=== PATIENT | female | born 1960 | race Caucasian/White ===

== ENCOUNTER 2020-04-20 18:25 | Emergency (ER) | payer SELFPAY ==
[~2020-04-20] VITALS: Ht 160 cm; Wt 81.7 kg
[~2020-04-20 18:25] MED LIST: ATOR20 PO; BUSP5 PO; CLON1 PO; Cymbalta20 MG PT; Zantac150 MG PO
== END 2020-04-20 19:26 | disposition home or self-care (01) ==
LOC: ER 18:25
DX: S80.11XA Contusion of right lower leg, initial encounter (principal); J44.9 Chronic obstructive pulmonary disease, unspecified; F41.9 Anxiety disorder, unspecified; F32.9 Major depressive disorder, single episode, unspecified; N18.9 Chronic kidney disease, unspecified; F17.210 Nicotine dependence, cigarettes, uncomplicated; V49.9XXA Car occupant (driver) (passenger) injured in unspecified traffic accident, initial encounter
CPT/HCPCS: 99284

== ENCOUNTER 2020-08-15 10:52 | Emergency (ER) | payer OTHER ==
[~2020-08-15] VITALS: Ht 160 cm; Wt 89.8 kg
== END 2020-08-15 13:55 | disposition home or self-care (01) ==
LOC: ER 10:52
DX: Z53.21 Procedure and treatment not carried out due to patient leaving prior to being seen by health care provider (principal)

== ENCOUNTER 2020-10-08 16:10 | Emergency (ER) | payer OTHER ==
[~2020-10-08] VITALS: Ht 160 cm; Wt 90.7 kg
== END 2020-10-08 17:23 | disposition home or self-care (01) ==
LOC: ER 16:10
DX: M17.12 Unilateral primary osteoarthritis, left knee (principal); J44.9 Chronic obstructive pulmonary disease, unspecified; F41.9 Anxiety disorder, unspecified; F32.9 Major depressive disorder, single episode, unspecified; N18.9 Chronic kidney disease, unspecified; F17.210 Nicotine dependence, cigarettes, uncomplicated; Z79.899 Other long term (current) drug therapy
CPT/HCPCS: 99284

== ENCOUNTER 2021-03-30 09:23 | Emergency (ER) | payer OTHER ==
[~2021-03-30] VITALS: Ht 160 cm; Wt 90.7 kg
== END 2021-03-30 10:32 | disposition home or self-care (01) ==
LOC: ER 09:23
DX: S62.394A Other fracture of fourth metacarpal bone, right hand, initial encounter for closed fracture (principal); J44.9 Chronic obstructive pulmonary disease, unspecified; N18.9 Chronic kidney disease, unspecified; F17.210 Nicotine dependence, cigarettes, uncomplicated; Z79.899 Other long term (current) drug therapy; W01.10XA Fall on same level from slipping, tripping and stumbling with subsequent striking against unspecified object, initial encounter
CPT/HCPCS: 29125; 73130; 99283-25

== ENCOUNTER 2021-05-18 14:57 | Inpatient (IN) | payer OTHER ==
[~2021-05-18] VITALS: Ht 160 cm; Wt 89.9 kg
[2021-05-18 15:10] LABS: Calcium, Ionized (POC) 1.12 mmol/L (1.10-1.46); Chloride (POC) 108 mmol/L (98-108); Creatinine (POC) 1.1 mg/dL (0.6-1.0); Glucose (ISTAT POC) 101 mg/dL (70-99); Hemoglobin (POC) 14.3 g/dL (12.0-16.0); Potassium (POC) 4.2 mmol/L (3.5-5.5); Sodium (POC) 143 mmol/L (135-148); Total CO2 (POC) 26 mmol/L (21-32)
[2021-05-18 15:15] LABS: BASOPHILS ABSOLUTE AUTO 0.06 K/mm3 (0.00-0.23); BASOPHILS PERCENT AUTO 0 % (0-2); EOSINOPHILS PERCENT AUTO 3 % (0-6); Hematocrit 44.2 % (33.0-51.0); IMMATURE GRAN ABSOLUTE AUTO 0.06 K/mm3 (0.00-0.10); IMMATURE GRAN PERCENT AUTO 0 % (0-1); LYMPHOCYTES ABSOLUTE AUTO 2.58 K/mm3 (0.84-5.20); LYMPHOCYTES PERCENT AUTO 17 % (21-46); MONOCYTES ABSOLUTE AUTO 1.43 K/mm3 (0.16-1.47); MONOCYTES PERCENT AUTO 10 % (4-13); Mean Corpuscular HGB 28.2 pg (26.0-34.0); Mean Corpuscular HGB Conc 31.7 g/dL (31.5-36.5); Mean Corpuscular Volume 89 fL (80-100); Mean Platelet Volume 9.6 fL (9.1-12.4); NEUTROPHILS ABSOLUTE AUTO 10.38 K/mm3 (1.96-9.15); NEUTROPHILS PERCENT AUTO 70 % (41-73); Platelet Count 305 K/mm3 (150-400); RDW Coefficient Variation 13.6 % (11.7-14.2); RDW Standard Deviation 44.2 fL (35.1-46.3); Red Blood Cell Count 4.96 M/mm3 (3.80-5.20); White Blood Cell Count 14.91 K/mm3 (4.00-11.30)
[2021-05-18 15:34] LABS: International Normalized Ratio 0.86; Prothrombin Time Results 9.4 Sec (9.7-11.5)
[2021-05-18 15:44] LABS: Alanine Aminotransfer (ALT/SGP 25 U/L (12-78); Albumin, Blood 3.2 g/dL (3.4-5.0); Albumin/Globulin Ratio 0.9 (0.8-1.8); Alk Phos 82 U/L (50-136); Anion Gap 4 mmol/L (6-16); Aspartate Aminotrans (AST/SGOT 19 U/L (12-37); Bilirubin, Total 0.3 mg/dL (0.1-1.0); Blood Urea Nitrogen 16 mg/dL (8-24); Bun/Creatinine Ratio 14.8 (12.0-20.0); CO2, Blood 28 mmol/L (21-32); Calcium, Blood 8.9 mg/dL (8.5-10.1); Chloride, Blood 111 mmol/L (98-108); Creatinine, Blood 1.08 mg/dL (0.40-1.00); Ethanol (Alcohol), Blood, Med <3 mg/dL; Globulin, Blood 3.6 g/dL (2.2-4.0); Glomerular Filtration Rate 52 (60-); Glucose, Blood 98 mg/dL (70-99); Potassium, Blood 4.3 mmol/L (3.5-5.5); Sodium, Blood 143 mmol/L (136-145); Total Protein, Blood 6.8 g/dL (6.4-8.2); Troponin I 0.348 ng/mL (0.000-0.040)
[2021-05-18 16:58] LABS: U Amphetamine Screen DETECTED; U Barbituate Screen Not Detected; U Benzodiazapine Screen Not Detected; U Buprenorphine Screen Not Detected; U Cannabinoids Screen DETECTED; U Cocaine Screen Not Detected; U Methadone Screen Not Detected; U Methamphetamine Screen DETECTED; U Opiates Screen DETECTED; U Oxycodone Screen Not Detected; U Phencyclidine Screen Not Detected; U Propoxyphene Screen Not Detected
--- NOTE | 2021-05-18 16:58 | NUR ---
INITALLY PT OG PLACEMENT WITH DR MARINO PERMISSION REVEALED A COMBINATION OF GASTRIC CONTENTS AND BLOOD OF ABOUT ML PT IS NOTED TO HAVE BLEEDING NASALY AND ORALLY, WILL MONITOR.
[2021-05-18 18:02] LABS: PCO2 Arterial 57.2 mmHg (35-45); PO2 Arterial 66.1 mmHg (80-100); pH Blood Arterial 7.26 (7.35-7.45)
--- NOTE | 2021-05-18 19:34 | NUR ---
CARE ASSUMED- PICC LINE BEING PLACED MIR. SEDATION INFUSING-PROPOFOL AT 50 MCG/KG/MIN. IVF-NS @ 100 ML/HR. EDDY IN PLACE DRAINING CLEAR YELLOW OUTPUT. BS: END EXPIRATORY WHEEZES BILAT UPPER LOBES ON VENT A/C TV 400, RATE 14, 80% PEEP 12. VITALS NOTED IN FLOWSHEET. #7 ET-TUBE, DIFFICULTY PASSING SXN CATH-BUT ABLE TO-SXN SMALL AMTS BLOODY SECREATIONS WITH A POSITIVE COUGH. TR BAND ON RT WORST, GOOD COLOR, CAP REFILL AND SATS RT HAND. DECREASED PRESSURE IN BAND BY 2 ML. CONTINUE ASSESSMENTS AND CARE.
--- NOTE | 2021-05-18 19:44 | NUR ---
PT BP LABILE WITH PROPOFOL GTT. NS 100ML MAINTANCE AND 250 BOLUS STARTED AFTER BP DROPPED, SEE VS. PT IS RESTRAINED. UPPER ARM P.G. CHANGED TO PICC LINE AND LEVOPHED GTT PLACED ON STANDBY. TR BAND REPORTED TO HAVE 15ML PLACED IN SENIOR BACK END JAVA DEVELOPER. SITE W/O OOZING OR HEMATOMA AND GOOD FINGER CIRCULATION NOTED. PT HAS NASAL AND ORAL BLOOD SX AND OG WAS PLACED WTIH 500ML OF GASTRIC AND BLOOD RETURN. GAUZE PLACED IN R NARE TO ASSIST IN CONTROLLING BLEEDING UNTIL ANTICOAG THERAPY CORRECTED. PT PROPOFOL HAS BEEN TITRATED AND SETTLED AT 35MCG WHERE LOW BP WERE NOTED, NS BOLUS GIVEN, AND ORDER FOR LEVOPHED GTT AND PICC LINE OBTAINED.
--- NOTE | 2021-05-18 23:14 | NUR ---
CALLED DR. BURCIAGA TO GIVE AN UPDATE ON PT'S BLEEDING FROM THE NOSE AND THAT IT HAS SLOWED DOWN. DOES NOT WANT AGGRASTAT GIVEN. HE DOES WANT THE BRILINTA GIVEN TONIGHT AND THE ASA TO BE GIVEN IN THE AM.
--- NOTE | 2021-05-18 23:40 | NUR ---
ASSESS FAMILY CALLED AND UPDATED. PT REMAINS SEDATED ON PROPOFOL, VENT NOW ON A/C 18(RATE CHANGE BY RT PER MD), 60% (FIO2 DECREASED BY RT) TV400, PEEP 12. BS: CLEAR BILAT, EQUAL. SXN: SMALL AMTS BLOODY SECREATIONS. ORAL CARE DONE WITH SCANT BLOODY SECREATIONS.CONTINUE ASSESSMENTS AND CARE.
--- NOTE | 2021-05-19 02:28 | NUR ---
TR BAND-REMOVED. PRESSURE WAS RELEASED 2 ML'S AT A TIME OVER 3 HOURS Q 15 MIN INTERVALS. NO S&S OF BLEEDING. AFTER BAND REMOVED, SITE COVERED WITH WINDOW DRESSING, GOOD STRONG RADIAL PULES & CAP REFIL NOTED. CONTINUE ASSESSMENT AND CARE.
[2021-05-19 05:40] LABS: Hematocrit 40.3 % (33.0-51.0); Hemoglobin 12.9 g/dL (11.5-16.0); Mean Corpuscular HGB 28.7 pg (26.0-34.0); Mean Corpuscular Volume 90 fL (80-100); Mean Platelet Volume 9.8 fL (9.1-12.4); Platelet Count 303 K/mm3 (150-400); RDW Coefficient Variation 13.7 % (11.7-14.2); RDW Standard Deviation 45.2 fL (35.1-46.3); Red Blood Cell Count 4.49 M/mm3 (3.80-5.20); White Blood Cell Count 35.89 K/mm3 (4.00-11.30)
[2021-05-19 05:58] LABS: BAND PERCENT MAN 28 % (0-8); BASOPHILS PERCENT MAN 0 % (0-2); EOSINOPHILS PERCENT MAN 0 % (0-6); LYMPHOCYTES ABSOLUTE MAN 0.71 K/mm3 (0.84-5.20); LYMPHOCYTES PERCENT MAN 2 % (21-46); METAMYELOCYTE ABSOLUTE MAN 0.35 K/mm3 (0.00-0.00); METAMYELOCYTE PERCENT MAN 1 % (0-0); MONOCYTES ABSOLUTE MAN 1.43 K/mm3 (0.16-1.47); MONOCYTES PERCENT MAN 4 % (4-13); NEUTROPHILS ABSOLUTE MAN 33.37 K/mm3 (1.96-9.15); SEG NEUTROPHILS PERCENT MAN 65 % (41-73); TOTAL CELLS COUNTED 100
[2021-05-19 05:59] LABS: Bun/Creatinine Ratio 14.4 (12.0-20.0); Calcium, Blood 8.4 mg/dL (8.5-10.1); Creatinine, Blood 1.18 mg/dL (0.40-1.00); Potassium, Blood 4.4 mmol/L (3.5-5.5)
--- NOTE | 2021-05-19 06:00 | NUR ---
ASSESS SEDATION SLOWLY DECREASED OVERNIGHT TO 30 MCG/KG/MIN. PT WOKE, COMBATIVE, PULLING AT RESTRAINTS, THRASHING HEAD, MOUTHING WORDS, AGGITATED. INCREASED PROPOFOL TO 50 MCG/KG/MIN TO SEDATE PT FOR SAFETY AND COMFORT. LEVO STARTED @ 2 MCG/MIN FOR BP SUPPORT. CONTINUE ASSESSMENT AND CARE.
--- NOTE | 2021-05-19 06:42 | NUR ---
END OF SHIFT PT ON VENT- AC/VC RATE 18, TV 400, 60%, 12 PEEP. BS: DECREASED, CLEAR, EQUAL. SXN: SMALL BLOODY SECREATIONS, STRONG COUGH, SXN ORAL AIRWAY ALSO BLOODY SECREATIONS, POSITIVE GAG. REMAINS SEDATED ON PROPOFOL CURRENTLY @ 50 MCG/KG/MIN. WHEN SEDATION DECREASED OVERNIGHT-PT WOKE, THRASHED AROUND AND REQUIRED SEDATION TO BE INCREASED FOR SAFETY AND COMFORT. STARTED LEVO FOR LOW BP'S CURRENTLY @ 3 MCG/MIN. EDDY CATH REMAINS IN PLACE. CONTINUE ASSESSMENT AND CARE TILL REPORT OFF TO DAYSHIFT.
[2021-05-19 07:40] LABS: Source, Urine Catheter
--- NOTE | 2021-05-19 08:00 | NUR ---
PT REMAINS INTUBATED, SEDATED, AND RESTRAINED. PT GRIMACING, AND PULLING ON RESTRAINTS WITH ORAL CARE. NOT FOLLOWING COMMANDS. PT VERY AGITATED WITH POSITION CHANGE. REACHES FOR ETT WHEN NOT RESTRAINED, KICKING LEGS, AND THRASHING IN THE BED. PROPOFOL TITRATED UP TO 55 MCG/KG/MIN AND PT MED WITH FENTANYL 50 MCG IVP X 1 FOR PAIN/SEDATION ADJUNCT. ECG SHOWS SR. MAP TRENDING <60-LEVOPHED TITRATED UP TO 4 MCG/MIN. LUNGS DIMINISHED IN THE BASES. ETT TO VENT AC 18, TV 400, PEEP 12, FIO2 40%-SUCTION PRODUCTIVE OF MODERATE AMOUNT OF OLD, BLOODY SECRETIONS. MAINTAINS SATS>90% ON RA. OGT CLAMPED AFTER ROUTINE AM MEDS GIVEN. EDDY WITH SMALL AMOUNT OF CLOUDY URINE TO BSD. U/A SENT.
[2021-05-19 08:01] LABS: Appearance, Urine Turbid (Clear); Bilirubin, Urine Neg (Neg); Blood, Urine 1+ (Neg); Color, Urine Yellow (P-Yellow); Glucose Qualitative, Urine Neg (Neg); Ketones, Urine Neg (Neg); Leukocyte Esterase, Urine 1+ (Neg); Nitrite, Urine Neg (Neg); Protein, Urine 2+ (Neg); Specific Gravity, Urine 1.015 (1.003-1.022); Urobilinogen, Urine NORM (Normal)
[2021-05-19 08:18] LABS: Amorphous Heavy (0-Heavy)
[2021-05-19 08:19] LABS: Bacteria Not Seen /hpf; Red Blood Cells, Urine 0-2 /hpf (0-2); Squamous Epithelial Cells Not Seen /hpf (Few); White Blood Cells, Urine 0-2 /hpf (0-5)
--- NOTE | 2021-05-19 09:30 | NUR ---
DR. NOBLE IN TO SEE PT. PEEP DECREASED TO 8-SATS STILL >90%
--- NOTE | 2021-05-19 10:15 | NUR ---
PEEP DECREASED TO [address] FINN>90%
--- NOTE | 2021-05-19 11:30 | NUR ---
DR. NOBLE AT BEDSIDE. PT OPENED EYES TO HIS VOICE AND NODDED APPORPRIATELY, BUT THEN BECAME EXTREMELY AGITATED. PRECEDEX DRIP TITRATED UP TO 1.4 MCG/KG/MIN AND PROPOFOL @ 30 MCG/KG/MIN-MED WITH FENTANYL 50 MCG IVP X 1 -SEE EMAR. PT PLACED ON SPONTANEOUS MODE OF VENTILATION WITH PS 12-GOOD TV AND SATS>90% ON FIO2 30%. DR. NOBLE CHECKED FOR CUFF LEAK, BUT NO CUFF LEAK AT THIS TIME. WILL LEAVE ON SPONTANEOUS TOLERATED, BUT NO PLAN TO EXTUBATE TODAY.
--- NOTE | 2021-05-19 14:35 | NUR ---
PT BECAME VERY AGITATED WITH REPOSITIONING. SHE TRIED TO SIT UP IN BED AND BEGAN KICKIN HER LEGS AND PULLING ON RESTRAINTS. PT DID FOLLOW COMMANDS TO OPEN HER EYES, BUT NOT FOLLOWING ANY OTHER COMMANDS. SHE DID NOD "YES" WHEN ASKED IF IN PAIN-MED WITH FENTANYL 100 MCG IVP X 1. PT STILL ON PS 12-SATS>90% TV'S 400'S.
--- NOTE | 2021-05-19 15:30 | NUR ---
NO ACUTE CHANGES-PT DENIES HEADACHE OR DIZZINESS. PT STILL DISORIENTED, BUT VERY PLEASANT AND COOPERATIVE WITH CARE. REPORT PHONED TO [facility] SYLVESTER IN PREP TO TRANSFER PT TO PCU 5.
--- NOTE | 2021-05-19 16:00 | NUR ---
PT CONTINUES TO GET AGITATED WITH ORAL CARE AND POSITION CHANGES WITH PROPOFOL @ 30 MCG/KG/MIN AND PRECEDEX @ 1.4 MCG/KG/MIN-MEDICATING WITH FENTANYL 50-100MCG IVP-PRN PAIN/SEDATION ADJUNCT-SEE EMAR. TEMP 100.9 [address] TO [address] MAP TRENDING 60-65 WITH LEVOPHED @ 5 MCG/MIN. LUNGS REMAIN DIMINISHED IN THE BASES. VENT CONTINUES ON PS 12, FIO2 30%-TV 400'S, RR 16-24, SATS>90% ON FIO2 30%. OGTF INITIATED PER DIETARY ORDERS. EDDY WITH DECREASED URINE OUTPUT THIS SHIFT-CONTINUES DARK, YELLOW AND CLOUDY.
--- NOTE | 2021-05-19 17:30 | NUR ---
DR. NOBLE MADE AWARE THAT PT URINE OUTPUT ONLY 250 CC THIS SHIFT. ORDER GIVEN FOR LR-SEE ORDERS.
--- NOTE | 2021-05-19 19:24 | NUR ---
ASSUMED PT CARE FROM [facility] AT 1915 PT INTUBATED AND SEDATED. VENT SETTINGS SPONTANEOUS WITH PS 12/5; FIO2 30%, RR 17, SPO2 >95%. PROPOFOL AT 30MCG/KG/MIN, PRECEDEX AT 1.4 MCG/KG/HR. LR AT 500ML/HR X1 LITER. LEVOPHED AT 4MCG/MIN. PICC TO MIR. VHP INFUSING AT 25MLS/HR WITH GOAL OF 40MLS/HR. NSR WITH OCCASIONAL PAC'S. RATE 80'S. RIGHT RADIAL SITE IS SOFT, NON-TENDER WITH NO OOZING OR HEMATOMA NOTED. EDDY CATHETER IS PATENT AND DRAINING DARK, CLOUDY YELLOW URINE TO GRAVITY. SEE SHIFT SUMMARY FOR FURTHER DETAILS.
--- NOTE | 2021-05-20 05:11 | NUR ---
END OF SHIFT SUMMARY NO SIGNIFICANT CHANGES NOTED THIS SHIFT. VENT SETTINGS REMAIN UNCHANGED. SEDATION REMAINS WITH PROPOFOL AT 30MCG/KG/MIN. PRECEDEX AT 1.4MCG/KG/HR. LEVOPHED CURRENTLY ON STANDBY. NS TKO. PT CONTINUES TO WITHDRAWAL FROM NOXIOUS STIMULI. DOES MAKE PURPOSEFUL MOVEMENTS TOWARD ETT; HIGH RISK OF SELF EXTUBATION; THEREFORE, DID NOT PERFORM SEDATION VACATION THIS SHIFT. DUE TO HIGH RESIDUALS, TUBE FEEDING HAS BEEN PLACED ON STANDBY DESPITE EFFORTS OF DECREASING TUBE FEED RATE, WELL ONLY REINSTILLING 250CC OF RESIDUALS AND HOLDING TUBE FEED FOR AN HOUR. PT CONTINUED TO HAVE RESIDUALS >300 EACH TIME, WHICH WAS BROWN IN COLOR WITH A FOUL ODOR. EDDY CATHETER PATENT AND DRAINING CLOUDY URINE TO GRAVITY. WILL CONTINUE TO MONITOR UNTIL REPORT IS HANDED OFF TO ONCOMING RN.
[2021-05-20 05:42] LABS: Hematocrit 36.2 % (33.0-51.0); Hemoglobin 11.9 g/dL (11.5-16.0); Mean Corpuscular HGB 28.7 pg (26.0-34.0); Mean Corpuscular HGB Conc 32.9 g/dL (31.5-36.5); Mean Corpuscular Volume 87 fL (80-100); Mean Platelet Volume 10.2 fL (9.1-12.4); Platelet Count 271 K/mm3 (150-400); RDW Coefficient Variation 13.5 % (11.7-14.2); RDW Standard Deviation 43.5 fL (35.1-46.3); Red Blood Cell Count 4.14 M/mm3 (3.80-5.20); White Blood Cell Count 25.87 K/mm3 (4.00-11.30)
[2021-05-20 06:02] LABS: BAND PERCENT MAN 8 % (0-8); BASOPHILS PERCENT MAN 0 % (0-2); EOSINOPHILS PERCENT MAN 0 % (0-6); LYMPHOCYTES ABSOLUTE MAN 0.77 K/mm3 (0.84-5.20); LYMPHOCYTES PERCENT MAN 3 % (21-46); MONOCYTES ABSOLUTE MAN 0.77 K/mm3 (0.16-1.47); MONOCYTES PERCENT MAN 3 % (4-13); NEUTROPHILS ABSOLUTE MAN 24.31 K/mm3 (1.96-9.15); SEG NEUTROPHILS PERCENT MAN 86 % (41-73); TOTAL CELLS COUNTED 100
[2021-05-20 06:07] LABS: Anion Gap 6 mmol/L (6-16); Blood Urea Nitrogen 22 mg/dL (8-24); Bun/Creatinine Ratio 22.4 (12.0-20.0); CO2, Blood 28 mmol/L (21-32); Calcium, Blood 8.4 mg/dL (8.5-10.1); Chloride, Blood 106 mmol/L (98-108); Creatinine, Blood 0.98 mg/dL (0.40-1.00); Glomerular Filtration Rate 58 (60-); Glucose, Blood 179 mg/dL (70-99); Magnesium, Blood 2.2 mg/dL (1.6-2.4); Phosphorus, Blood 2.2 mg/dL (2.5-4.9); Potassium, Blood 4.4 mmol/L (3.5-5.5); Sodium, Blood 140 mmol/L (136-145); Triglycerides 164 mg/dL (30-160)
--- NOTE | 2021-05-20 08:00 | NUR ---
PT REMAINS INTUBATED, SEDATED, AND RESTRAINED. PT BECOMES AGITATED AND BEGINS PULLING ON RESTRAINTS AND KICKING HER LEGS IN THE BED WITH NOXIOUS STIMULI, ORAL CARE, AND POSITION CHANGES. PROPOFOL @ 30 MCG/KG/MIN AND PRECEDEX @ 1.4 MCG/KG/MIN. TMEP 99.8. ECG SHOWS SR. SBP 80-90'S, BUT MAP >60. LUNGS DIMINISHED IN THE BASES. FEW, OLD BLOODY SECRETIONS FROM ETT. PT REMAINS ON PS 12, RR 18-22, TV 400'S-SATS >90% ANTICIPATE LEAK TEST WHEN DR. NOBLE DOES ROUNDS THIS AM. POSSIBLE EXTUBATION-PENDING RESULTS OF LEAK TEST. OGT CLAMPED AFTER ROUTINE AM MEDS GIVEN. TF HAS BEEN OFF PT HAD HIGH RESIDUALS OVER NIGHT. EDDY WITH SMALL AMOUNT OF DARK, YELLOW URINE-STILL SOMEWHAT CLOUDY, BUT IMPROVED FROM 05/19/21.
--- NOTE | 2021-05-20 09:43 | NUR ---
PT NODDED "YES" WHEN ASKED IF IN PAIN. SHE OPENED HER EYES TO VOICE WELL. MED WITH FENTANYL 100 MCG IVPX1-SEE EMAR.
--- NOTE | 2021-05-20 10:00 | NUR ---
PT NODDING APPROPRIATELY TO "YES" OR "NO" QUESTIONS. TOLERATED REPOSITIONING WELL THIS TIME. NO NOTED AGITATED.
--- NOTE | 2021-05-20 11:57 | NUR ---
PT RESTING QUIETLY ON VENT WHEN NOT DISTURBED. PT LESS AGITATED WITH ORAL CARE AND REPOSITIONING. DR. NOBLE CHECKED PT FOR CUFF LEAK. NO CUFF LEAK AT THIS TIME. THEREFORE, PT WILL REMAIN INTUBATED FOR TODAY. CONTINUE ON PS 12 TOLERATED. CURRENTLY, SATS>90% AND NO NOTED RESPIRATORY DISTRESS. OGTF RESUMED PER DR. NOBLE ORDER @ 15 CC/HR.
--- NOTE | 2021-05-20 18:30 | NUR ---
SHIFT SUMMARY: PT REMAINS INTUBATED, SEDATED, AND RESTRAINED. PT HAS CONSISTENTLY BEEN ABLE TO NOD APPROPRIATELY TO "YES" OR "NO" QUESTIONS. MEDICATED WITH FENTANYL SEVERAL TIMES THOUGH OUT THE SHIFT-SEE EMAR. ECG REMAINS SR WITH ECTOPY. BP STABLE OFF OF LEVOPHED ALL DAY. TEMP MAX 100.9. VENT REMAINS ON PS 12, FIO2 30% -SATS>90% NO CUFF LEAK. THEREFORE, NO SEDATION VACATION OR ATTEMPT TO WEAN/EXTUBATE PT TODAY. DR. NOBLE TO RE-EVALUATE IN THE AM.LUNGS COARSE AND WHEEZY-FEW, THICK, BROWN ETT SECRETIONS. OGTF CONTINUES @ 15 CC/HR. EDDY WITH 450 CC URINE OUT THIS SHIFT-URINE STILL QUITE CLOUDY.
--- NOTE | 2021-05-20 20:43 | NUR ---
ASSUMED PT CARE FROM [facility] AT 1915 PT REMAINS INTUBATED AND SEDATED. VENT SETTINGS: SPONTANEOUS WITH PS 12/5; FIO2 30%, RR 14-20, SPO2 >90%. PT GRIMACES AND WITHDRAWALS FROM NOXIOUS STIMULI. RELUCTANT TO FOLLOW COMMANDS, BUT WILL NOD HEAD YES/NO TO PAIN. MEDICATED WITH FENTANYL X1 THIS SHIFT. PROPOFOL AT 30MCG/KG/MIN, AND PRECEDEX AT 1.4MCG/KG/HR INFUSING VIA PICC TO MIR. VHP INFUSING AT GOAL OF 15MLS/HR WITH ORDERS NOT TO CHECK RESIDUALS. EDDY CATHETER CONTINUES TO DRAIN DARK, YELLOW URINE THAT IS CLOUDY. RIGHT RADIAL SITE S/P ACCESS IS STABLE AT THIS TIME. NSR WITH HR 70-80'S. BP'S STABLE, SEE FLOWSHEET. PLEASE SEE SHIFT SUMMARY FOR FURTHER DETAILS.
[2021-05-21 04:24] LABS: BASOPHILS ABSOLUTE AUTO 0.04 K/mm3 (0.00-0.23); BASOPHILS PERCENT AUTO 0 % (0-2); EOSINOPHILS PERCENT AUTO 0 % (0-6); Hematocrit 36.9 % (33.0-51.0); Hemoglobin 12.2 g/dL (11.5-16.0); IMMATURE GRAN ABSOLUTE AUTO 0.32 K/mm3 (0.00-0.10); IMMATURE GRAN PERCENT AUTO 1 % (0-1); LYMPHOCYTES ABSOLUTE AUTO 0.61 K/mm3 (0.84-5.20); LYMPHOCYTES PERCENT AUTO 2 % (21-46); MONOCYTES ABSOLUTE AUTO 1.07 K/mm3 (0.16-1.47); MONOCYTES PERCENT AUTO 4 % (4-13); Mean Corpuscular HGB 28.8 pg (26.0-34.0); Mean Corpuscular HGB Conc 33.1 g/dL (31.5-36.5); Mean Corpuscular Volume 87 fL (80-100); Mean Platelet Volume 10.3 fL (9.1-12.4); NEUTROPHILS ABSOLUTE AUTO 23.79 K/mm3 (1.96-9.15); NEUTROPHILS PERCENT AUTO 92 % (41-73); Platelet Count 286 K/mm3 (150-400); RDW Coefficient Variation 13.3 % (11.7-14.2); RDW Standard Deviation 42.3 fL (35.1-46.3); Red Blood Cell Count 4.24 M/mm3 (3.80-5.20); White Blood Cell Count 25.83 K/mm3 (4.00-11.30)
[2021-05-21 04:46] LABS: Anion Gap 5 mmol/L (6-16); Blood Urea Nitrogen 25 mg/dL (8-24); Bun/Creatinine Ratio 27.1 (12.0-20.0); CO2, Blood 27 mmol/L (21-32); Calcium, Blood 8.3 mg/dL (8.5-10.1); Chloride, Blood 106 mmol/L (98-108); Creatinine, Blood 0.92 mg/dL (0.40-1.00); Glomerular Filtration Rate >60 (60-); Glucose, Blood 159 mg/dL (70-99); LDL Direct Measurement 59 mg/dL (0-130); Potassium, Blood 4.5 mmol/L (3.5-5.5); Sodium, Blood 138 mmol/L (136-145)
--- NOTE | 2021-05-21 05:14 | NUR ---
END OF SHIFT SUMMARY NO SIGNIFICANT CHANGES NOTED THIS SHIFT. VENT SETTINGS REMAIN UNCHANGED. SEDATION REMAINS UNCHANGED. PT IS FOLLOWING COMMANDS AND NODDING HEAD YES/NO TO QUESTIONS APPROPRIATELY. MEDICATED FOR PAIN X2 THIS SHIFT. LUNG SOUNDS NOTED TO BE COARSE WITH RHONCHI NOTED AT THE BEGINNING OF SHIFT, BUT HAVE SINCE CLEARED. THICK CARD/YELLOW SPUTUM WITH BLOOD STREAKS NOTED. NSR WITH HR 60-70'S. BP'S STABLE, SEE FLOWSHEET. VHP INFUSING AT 15MLS/HR. EDDY IS PATENT AND DRAINING TO GRAVITY. WILL CONTINUE TO MONITOR UNTIL REPORT IS HANDED OFF TO ONCOMING RN.
--- NOTE | 2021-05-21 06:09 | NUR ---
UPDATE DURING LAST REPOSITIONING AT 0600, PT WAS LAID FLAT IN ORDER TO BOOST IN BED. DURING THIS TIME HER HR WAS NOTED TO DROP TO 30'S IN WHAT APPEARED TO BE A JUNCTIONAL RHYTHM. SBP WENT FROM 130'S TO 90'S. SAT PT BACK UP AND SHE SLOWLY RECOVERED. PT REMAINED BREATHING ON SPONTANEOUS DURING THE ENTIRE EPISODE. DID NOT APPEAR THAT PT WAS BEARING DOWN IN THE SLIGHTEST THERE WERE NO HIGH PEAK PRESSURE ALARMS NOTED ON THE VENT. PT RECOVERED WITH HR BACK IN THE 60'S IN SINUS RHYTHM.
--- NOTE | 2021-05-21 07:45 | NUR ---
PT REMAINS INTUBATED, SEDATED, AND RESTRAINED. PT OPENED EYES TO VOICE ON PROPOFOL @ 30 MCG/KG/MIN AND PRECEDEX @ 1.4 MCG/KG/MIN. PT NODS "YES" WHEN ASKED IF IN PAIN. MED WITH FENTANYL 100 MCG IVP X 1.TEMP 99.5 SKIN CLAMMY. ECG SHOWS SR. BP STABLE. LUNGS DIMINISHED IN THE BASES. PT REMAINS ON PS 12, FIO2 30% AND MAINTAINS SATS>90%. FEW, THICK, BROWN ETT SECRETIONS. SMALL AMOUNT OF OLD BLOODY ORAL SECRETIONS. ANTICIPATE DR. NOBLE TO RE-EVALUATE CUFF LEAK. IF CUFF LEAK, PT WILL MOST LIKELY BE EXTUBATED. OGFT CONTINUES @ 15 CC/HR. FEW HYPOACTIVE BT'S AUSCULTATED. EDDY TO BSD WITH SMALL AMOUNT OF DARK, YELLOW URINE.
--- NOTE | 2021-05-21 10:23 | NUR ---
DR. NOBLE IN TO SEE PT. MILD CUFF LEAK DETECTED, BUT NOT ENOUGH TO SAFELY EXTUBATE PT TODAY. AFTER CUFF RE-INFLATED, PT STARTED COUGHING-SUCTIONED A LARGE AMOUNT OF THICK, BLOODY SECRETIONS FROM ETT AND MOUTH. PT AGITATED-NODS "YES" TO PAIN. MED WITH FENTANYL-SEE EMAR. PT RR 26-34 AND TV 200'S AND SATS 85%.RT CLAUDIA NOTIFIED.
--- NOTE | 2021-05-21 10:30 | NUR ---
RR 30'S, TV 200'S, HIGH PEAK PRESSURES-CLAUDIA, RT SUCTIONED A LARGE AMOUNT OF THICK, OLD BLOODY SECRETIONS. PT USING ACCESSORY MUSCLES AND ABDOMEN TO BREATH. DR. NOBLE AWARE. PT PLACED BACK ON AC:18, TV 400, FIO2 30%, PEEP 5-SATS >90%-PROPOFOL TITRATED UP TO 50 MCG/KG/MIN.
[2021-05-21 10:31] LABS: Vancomycin, Trough 24.3 ug/mL (5.0-10.0)
--- NOTE | 2021-05-21 11:05 | NUR ---
PT RESTING QUIETLY ON THE VENT. NO NOTED DISTRESS AT THIS TIME.
--- NOTE | 2021-05-21 11:57 | NUR ---
PT RESTING QUIETLY ON VENT. WILL REST PT ON AC FOR SEVERAL HOURS, THEN ATTEMPT PS 12 AGAIN. LUNGS COARSE TO UPPER LOBES WITH SCATTERED WZ TO RIGHT. MAINTAINS SATS>90% SUCTION PRODUCTIVE OF SMALL AMOUNT OF THICK, YELLOW/OLD BLOODY SECRETIONS.
--- NOTE | 2021-05-21 14:48 | NUR ---
PT SITTING UP IN CHAIR-SIPPING ON COFFEE WITHOUT NOTED DISTRESS. PT WISHES TO REMAIN IN THE CHAIR FOR NOW. HE STATES "I'M COMFORTABLE." NO NOTED RESPIRATORY DISTRESS-SATS>90% ON 2 LITERS NASAL CANULA.
--- NOTE | 2021-05-21 16:00 | NUR ---
PT PLACED BACK ON PS 12. RR 10-12. TITRATED PROPOFOL DOWN TO 30 MCG/KG/MIN AND RR 16-20, TV'S 500-600'S. MAINTAINS SATS>90% ON FIO2 30% PT FRIEND LESIA IN FOR VISIT. PT NODDED APPROPRIATELY IN RESPONSE TO HER.NO NOTED DISTRESS AT THIS TIME.
[2021-05-21 17:24] LABS: Vancomycin, Random 17.1 ug/mL
--- NOTE | 2021-05-21 17:57 | NUR ---
PT BECAME ANXIOUS AND REACH FOR ETT WITH POSITION CHANGE. PT NODDED "YES" WHEN ASKED IF IN PAIN. MED WITH FENTANYL 100 MCG IVP X1 -SEE EMAR. VANCO TROUGH DRAWN X 2 TODAY AND DOSE ADJUSTED BY PHARMACY-SEE EMAR.
--- NOTE | 2021-05-21 20:34 | NUR ---
ASSUMED PT CARE FROM [facility] AT 1915 PT REMAINS INTUBATED/SEDATED. VENT SETTINGS: SPONTANEOUS WITH PS 12/5; FIO2 30%. RR 14. SPO2 >90%. NSR WITH HR 70'S; BP'S STABLE, SEE FLOWSHEET. PT OPENS EYES TO VERBAL STIMULI AND FOLLOWS COMMANDS APPROPRIATELY. ABLE TO NOD HEAD YES/NO TO QUESTIONS. MEDICATED WITH FENTANYL FOR PAIN. PROPOFOL REMAINS AT 30MCG/KG/MIN AND PRECEDEX AT 1.4MCG/KG/HR. BOTH INFUSING VIA PICC LINE TO MIR. VHP INFUSING AT GOAL OF 15MLS/HR. ABDOMEN REMAINS DISTENDED WITH NO BM SINCE ADMIT. LUNG SOUNDS HAVE A RUB/WHEEZE TO RIGHT SIDE AND CLEAR T/O ON LEFT. NO FAMILY AT BEDSIDE AT THIS TIME. SEE SHIFT SUMMARY FOR MORE DETAILS.
[2021-05-22 03:47] LABS: BASOPHILS ABSOLUTE AUTO 0.04 K/mm3 (0.00-0.23); BASOPHILS PERCENT AUTO 0 % (0-2); EOSINOPHILS ABSOLUTE AUTO 0.01 K/mm3 (0.00-0.68); EOSINOPHILS PERCENT AUTO 0 % (0-6); Hematocrit 35.4 % (33.0-51.0); Hemoglobin 11.7 g/dL (11.5-16.0); IMMATURE GRAN ABSOLUTE AUTO 0.52 K/mm3 (0.00-0.10); IMMATURE GRAN PERCENT AUTO 2 % (0-1); LYMPHOCYTES ABSOLUTE AUTO 0.78 K/mm3 (0.84-5.20); LYMPHOCYTES PERCENT AUTO 4 % (21-46); MONOCYTES ABSOLUTE AUTO 1.04 K/mm3 (0.16-1.47); MONOCYTES PERCENT AUTO 5 % (4-13); Mean Corpuscular HGB 28.8 pg (26.0-34.0); Mean Corpuscular HGB Conc 33.1 g/dL (31.5-36.5); Mean Corpuscular Volume 87 fL (80-100); Mean Platelet Volume 10.1 fL (9.1-12.4); NEUTROPHILS ABSOLUTE AUTO 19.63 K/mm3 (1.96-9.15); NEUTROPHILS PERCENT AUTO 89 % (41-73); Platelet Count 301 K/mm3 (150-400); RDW Coefficient Variation 13.4 % (11.7-14.2); RDW Standard Deviation 42.7 fL (35.1-46.3); Red Blood Cell Count 4.06 M/mm3 (3.80-5.20); White Blood Cell Count 22.02 K/mm3 (4.00-11.30)
[2021-05-22 04:00] LABS: Anion Gap 5 mmol/L (6-16); Blood Urea Nitrogen 29 mg/dL (8-24); Bun/Creatinine Ratio 31.9 (12.0-20.0); CO2, Blood 27 mmol/L (21-32); Calcium, Blood 7.9 mg/dL (8.5-10.1); Chloride, Blood 108 mmol/L (98-108); Creatinine, Blood 0.91 mg/dL (0.40-1.00); Glomerular Filtration Rate >60 (60-); Glucose, Blood 140 mg/dL (70-99); Potassium, Blood 4.6 mmol/L (3.5-5.5); Sodium, Blood 140 mmol/L (136-145)
--- NOTE | 2021-05-22 05:56 | NUR ---
END OF SHIFT SUMMARY NO SIGIFICANT CHANGES THIS SHIFT. VENT SETTINGS UNCHANGED. PROPOFOL INCREASED TO 40MCG/KG/MIN D/T PT BECOMING RESTLESS AND TAPPING SIDES OF BED. MEDICATED FOR PAIN X2 THIS SHIFT, WHICH WAS EFFECTIVE. PRECEDEX REMAINS AT 1.4MCG/KG/HR. PT STILL RESPONSIVE TO VERBAL AND NOXIOUS STIMULI, ABLE TO FOLLOW COMMANDS AND MAKE NEEDS KNOWN. NODS HEAD YES/NO TO QUESTIONS APPROPRIATELY. SLIGHT CUFF LEAK NOTED THIS SHIFT. LUNG SOUNDS HAVE HAD A WHEEZE NOTED T/O SHIFT. MINIMAL SECRETIONS SUCTIONED VIA ETT. NSR WITH HR 60-70'S. ABDOMEN REMAINS DISTENDED WITH NO BM SINCE ADMIT; HYPOACTIVE TONES. MAY NEED STOOL SOFTENERS. VHP AT GOAL OF 15MLS/HR. EDDY CATHETER REMAINS PATENT AND DRAINING TO GRAVITY. WILL CONTINUE TO MONITOR UNTIL REPORT IS HANDED OFF TO ONCOMING RN.
--- NOTE | 2021-05-22 10:56 | NUR ---
AM ASSESSMENT... PT IS ABLE TO FOLLOW GRIPPING OF HANDS, MOVING LEGS, AND PROTRUDING TONGUE TO COMMAND WHILE ON PRECEDEX GTT 1.2 AND PROPOFOL DOWN TO 35 MCG. PT IS RESTRAINED FOR SAFETY. PT SEEMS TO BE IN NO RESP. DISTRESS AND VENT NOTED AT SPONT 12/5 30%. EDDY PATENT.
--- NOTE | 2021-05-22 11:11 | NUR ---
0935 PT T.F. STOPPED AND PT EXTUBATED TO RA. AFTER ABOUT 15 MIN PT BECAME RESTLESS AND AGITATED AND REQUIRED O2 AT 2L NC. PT REMAINS ON PRECEDEX GTT AT 1.4 ADN TAKING CLEARLY BUT IS QUITE CONFUESD AND AGITATED AT TIMES. WILL FOLLOW. PROPOFOL GTT STOPPED.
--- NOTE | 2021-05-22 11:46 | NUR ---
PT WAS YELLING OUT AND REQUEST BUT DISPITE VISUAL HALLUNINATIONS IS ABLE TO COOPERATE OCC TO VERBAL INSTRUCTIONS. PRECEDEX GTT REMAINS AT 1.4 AND NS AT TKO.
--- NOTE | 2021-05-22 15:46 | NUR ---
PT REQUESTED RN PLACE A CALL TO FAMILY AND SHE IS ABLE TO CARRY A CONVERSATION WITH PHONE CALLER. PRECEDEX GTT LOW AND WILL ATTEMPT TO D/C FOR NOW IF ABLE. PT IS COUGHING UP CLEAR AND WHITE SECREATIONS W/O DISTRESS.
--- NOTE | 2021-05-22 18:29 | NUR ---
PT IS OFF RESTRAINTS AND PRECEDEX GTT. TAKING PO LIQUID W/O DISTRESS. PT IS CALM WITH SL RESTLESSNESS AND HAS BEEN COOPERATIVE WITH CARE WITH SL UNUSUAL AFFECT. PT IS DIRECTABLE AND HAS BEEN TALKING ON PHONE TO FAMILY AND FRIENDS.
--- NOTE | 2021-05-22 19:00 | NUR ---
ASSUMED CARE ASSUMED CARE OF PATIENT. RESTING QUIETLY WHEN UNDISTURBED. ROUSES EASILY TO VERBAL STIMULI. ORIENTED TO SELF, MONTH/YEAR, AND TO THE FACT THAT SHE IS IN THE HOSPITAL, BUT IS NOT ORIENTED TO RECENT EVENTS OR DAY/TIME. COOPERATIVE WITH CARE. CONFUSED, WANDERING CONVERSATION. DENIES C/O PAIN OR DISCOMFORT AT THIS TIME. MOVES ALL EXTREMITIES AND REPOSITIONS SELF IN BED. MONITOR SHOWS NSR, RATE 70s. BP STABLE. 02 2L NC, SATS STABLE. DENIES C/O SOB OR DISCOMFORT. EDDY PATENT AND DRAINING DARK YELLOW URINE. PT IS SLIGHLTY DIAPHORETIC. MIR PICC LINE NOTED, PATENT. SEE SHIFT ASSESSMENT FOR FULL ASSESSMENT.
--- NOTE | 2021-05-22 23:37 | NUR ---
AGITATION/RESTLESS PT IS FEELING AGITATED AND IS RESTLESS IN BED. PULLING ON TELEMETRY LEADS AND IS CONFUSED ABOUT WHAT THEY ARE FOR AND WHERE SHE IS, BUT DOES TRY TO BE COOPERATIVE WITH CARE. CONTINUES TO BE CONFUSED AND APPEARS TO BE HAVING SOME VISUAL HALLUCINATIONS. PRECEDEX RESTARTED AT 0.3MCG/KG/HR AT THIS TIME.
[2021-05-23 05:29] LABS: BASOPHILS ABSOLUTE AUTO 0.05 K/mm3 (0.00-0.23); BASOPHILS PERCENT AUTO 0 % (0-2); EOSINOPHILS ABSOLUTE AUTO 0.01 K/mm3 (0.00-0.68); EOSINOPHILS PERCENT AUTO 0 % (0-6); Hematocrit 34.8 % (33.0-51.0); Hemoglobin 11.5 g/dL (11.5-16.0); IMMATURE GRAN ABSOLUTE AUTO 0.34 K/mm3 (0.00-0.10); IMMATURE GRAN PERCENT AUTO 2 % (0-1); LYMPHOCYTES ABSOLUTE AUTO 1.08 K/mm3 (0.84-5.20); LYMPHOCYTES PERCENT AUTO 6 % (21-46); MONOCYTES ABSOLUTE AUTO 1.28 K/mm3 (0.16-1.47); MONOCYTES PERCENT AUTO 7 % (4-13); Mean Corpuscular HGB 28.3 pg (26.0-34.0); Mean Corpuscular Volume 86 fL (80-100); Mean Platelet Volume 9.7 fL (9.1-12.4); NEUTROPHILS ABSOLUTE AUTO 14.53 K/mm3 (1.96-9.15); NEUTROPHILS PERCENT AUTO 84 % (41-73); Platelet Count 308 K/mm3 (150-400); RDW Coefficient Variation 13.2 % (11.7-14.2); RDW Standard Deviation 41.2 fL (35.1-46.3); Red Blood Cell Count 4.06 M/mm3 (3.80-5.20); White Blood Cell Count 17.29 K/mm3 (4.00-11.30)
[2021-05-23 05:49] LABS: Anion Gap 5 mmol/L (6-16); Blood Urea Nitrogen 28 mg/dL (8-24); Bun/Creatinine Ratio 33.8 (12.0-20.0); CO2, Blood 29 mmol/L (21-32); Calcium, Blood 7.9 mg/dL (8.5-10.1); Chloride, Blood 105 mmol/L (98-108); Creatinine, Blood 0.83 mg/dL (0.40-1.00); Glomerular Filtration Rate >60 (60-); Glucose, Blood 101 mg/dL (70-99); Potassium, Blood 4.1 mmol/L (3.5-5.5); Sodium, Blood 139 mmol/L (136-145)
--- NOTE | 2021-05-23 06:17 | NUR ---
SHIFT SUMMARY NO ACUTE CHANGES. PT SLEPT VERY LITTLE DURING SHIFT AND CONTINUES TO BE RESTLESS AT TIMES. CONTINUES TO BE CONFUSED AND DISORIENTED TO DATE/TIME AND EVENTS. OCCASIONAL CONFUSED CONVERSATION. ALSO CONTINUES WITH OCCASIONAL VISUAL AND AUDITORY HALLUCINATIONS. PT IS COOPERATIVE WITH CARE. PRECEDEX INFUSING AT 0.6MCG/KG/HR. VSS. O2 2L NC. RESPIRATIONS EVEN AND UNLABORED. FREQUENT COUGH, PRODUCTIVE OF THIN CLEAR SPUTUM. MEDICATED WITH FENTANYL 50MCG/IV X 1 DOSE FOR C/O GENERAL DISCOMFORT. EDDY PATENT AND DRAINING TO GRAVITY. TOLERATING CLEAR LIQUIDS. WILL REPORT TO ONCOMING RN WHEN AVAILABLE.
--- NOTE | 2021-05-23 07:07 | NUR ---
ASSUMED CARE: PT LAYING IN BED, TALKING TO STAFF. 2L O2 VIA NC IN PLACE. SINUS PAVAN TO NSR AT THIS TIME. PRECEDEX GTT RUNNING AT 0.6 MCG/KG. NO ACUTE NEEDS OR CONCERNS.
--- NOTE | 2021-05-23 09:58 | NUR ---
PT'S SISTER LESIA IS HERE AND WISHED TO SPEAK WITH DC PLANNING IN ORDER TO MAKE ARRANGEMENTS FOR DISCHARGE THAT INCLUDE A DIFFERENT LIVING SITUATION. CALL TO ZACK MONGE, WHO STATES SHE WILL BE HERE SHORTLY. PT AND SISTER ARE AWARE
--- NOTE | 2021-05-23 13:28 | NUR ---
PT TRANSFERRED TO ROOM 333 BY BADGER DISTILLER OPERATOR VIA WHEEL CHAIR. REPORT GIVEN TO DAVID MONGE. NO ACUTE NEEDS OR CONCERNS. TRANFERRED ON 2L DUE TO SOB ON EXERTION
--- NOTE | 2021-05-23 19:09 | NUR ---
a+o, very easily distracted, stated picc line hurt but reduced abx and no complaint, call light in reach, 2L via nc, pt removes frequently
--- NOTE | 2021-05-24 03:27 | NUR ---
SHIFT SUMMARY A/O TO SELF, FAMILY, AND FOLLOWING DIRECTIONS. VISUAL/AUDITORY HALLUCINATIONS NOTED. 1 ASSIST TO BATHROOM WITH FWW AND GB. VSS, NO ACUTE CHANGES AT THIS TIME. BED IN LOWEST POSITION WITH CALL LIGHT IN REACH. WILL CONTINUE TO MONITOR AND REPORT TO ONCOMING RN.
[2021-05-24 05:38] LABS: BASOPHILS ABSOLUTE AUTO 0.12 K/mm3 (0.00-0.23); BASOPHILS PERCENT AUTO 1 % (0-2); EOSINOPHILS ABSOLUTE AUTO 0.18 K/mm3 (0.00-0.68); EOSINOPHILS PERCENT AUTO 1 % (0-6); Hematocrit 39.9 % (33.0-51.0); Hemoglobin 13.2 g/dL (11.5-16.0); IMMATURE GRAN ABSOLUTE AUTO 0.71 K/mm3 (0.00-0.10); IMMATURE GRAN PERCENT AUTO 3 % (0-1); LYMPHOCYTES ABSOLUTE AUTO 2.16 K/mm3 (0.84-5.20); LYMPHOCYTES PERCENT AUTO 9 % (21-46); MONOCYTES PERCENT AUTO 9 % (4-13); Mean Corpuscular HGB 28.1 pg (26.0-34.0); Mean Corpuscular HGB Conc 33.1 g/dL (31.5-36.5); Mean Corpuscular Volume 85 fL (80-100); Mean Platelet Volume 9.5 fL (9.1-12.4); NEUTROPHILS ABSOLUTE AUTO 18.09 K/mm3 (1.96-9.15); NEUTROPHILS PERCENT AUTO 77 % (41-73); Platelet Count 349 K/mm3 (150-400); RDW Coefficient Variation 13.2 % (11.7-14.2); RDW Standard Deviation 40.6 fL (35.1-46.3); Red Blood Cell Count 4.69 M/mm3 (3.80-5.20); White Blood Cell Count 23.46 K/mm3 (4.00-11.30)
[2021-05-24 11:59] LABS: Stool Occult Blood Guaiac 1 Pos (Neg)
[2021-05-24 13:13] LABS: Hematocrit 43.6 % (33.0-51.0); Hemoglobin 14.4 g/dL (11.5-16.0)
[2021-05-24 16:22] LABS: Vancomycin, Random 12.7 ug/mL
--- NOTE | 2021-05-24 17:44 | NUR ---
SHIFT SUMMARY NO ACUTE EVENTS THIS SHIFT, VSS. ON ROOM AIR AND TOLERATING WELL. PT IS ALERT AND ABLE TO PROVIDE DETAILED INFORMATION REGARDING HER PERSONAL LIFE PRIOR TO HOSPITAL ADMISSION, IS ORIENTED TO VISITORS, BUT MAKES DISORIENTED STATEMENTS DURING MOST OF CONVERSATION. PT HAS GARBLED SPEECH AT TIMES, HAS FLIGHT OF IDEAS. PT ABLE TO AMBULATE TO BATHROOM WITH WALKER AND SOME CUES. PT HAD A FORMED STOOL WITH TATYANA BLOOD IN AND AROUND THE STOOL, DR. PICHARDO NOTIFIED AND ORDERS FOR GUAIAC GIVEN, STOOL SAMPLE SENT. NO ADDITIONAL BLEEDING NOTED FOR REST OF SHIFT.
--- NOTE | 2021-05-24 20:10 | NUR ---
PHONE CALL TO DR. KENNEY PHONE CALL TO DR. BRIONES TO REQUEST LIPITOR 40 MG ROUTE BE CHANGED FROM PT TO PO. DR. BRIONES WITH ORDERS FOR PO LIPITOR 40 MG TO START TONIGHT.
--- NOTE | 2021-05-25 01:26 | NUR ---
0105: PHONE CALL TO RESIDENT PLACED PHONE CALL TO DR. VALERO REQUESTING AN ANTI-EMETIC. PT IS C/O FEELING "PUKEY", ABD PAIN, AND HEART PAIN. PT HAS NOT VOMITED, BUT STATES SHE FEELS LIKE SHE WILL VOMIT AND REPORTS NAUSEA. DR. VALERO STATES SHE WILL UPDATE MED ORDERS IN THE EMAR.
[2021-05-25 05:40] LABS: BASOPHILS PERCENT AUTO 0 % (0-2); EOSINOPHILS ABSOLUTE AUTO 0.68 K/mm3 (0.00-0.68); EOSINOPHILS PERCENT AUTO 3 % (0-6); Hematocrit 39.6 % (33.0-51.0); Hemoglobin 13.1 g/dL (11.5-16.0); IMMATURE GRAN ABSOLUTE AUTO 0.69 K/mm3 (0.00-0.10); IMMATURE GRAN PERCENT AUTO 3 % (0-1); LYMPHOCYTES ABSOLUTE AUTO 3.04 K/mm3 (0.84-5.20); LYMPHOCYTES PERCENT AUTO 13 % (21-46); MONOCYTES ABSOLUTE AUTO 2.22 K/mm3 (0.16-1.47); MONOCYTES PERCENT AUTO 10 % (4-13); Mean Corpuscular HGB 28.5 pg (26.0-34.0); Mean Corpuscular HGB Conc 33.1 g/dL (31.5-36.5); Mean Corpuscular Volume 86 fL (80-100); Mean Platelet Volume 9.4 fL (9.1-12.4); NEUTROPHILS ABSOLUTE AUTO 16.68 K/mm3 (1.96-9.15); NEUTROPHILS PERCENT AUTO 71 % (41-73); Platelet Count 315 K/mm3 (150-400); RDW Coefficient Variation 13.3 % (11.7-14.2); Red Blood Cell Count 4.59 M/mm3 (3.80-5.20); White Blood Cell Count 23.41 K/mm3 (4.00-11.30)
--- NOTE | 2021-05-25 08:03 | NUR ---
SHIFT SUMMARY PT WITH FLIGHT OF IDEAS, UNABLE TO TRACK IN A LINEAR CONVERSATION. DECLINED TO WEAR C-PAP FOR THE DURATION OF THE NIGHT. FREQUENT CALLS MADE FOR ITEMS LIKE CHOCOLATE ICE CREAM, AND HER SISTER'S PHONE NUMBERS. VSS. RN OBSERVED ONE EPISODE OF TATYANA RED BLOOD ON OUTSIDE OF FORMED BROWN STOOL. PT AMBULATES WITH SBA TO BATHROOM. NO BLACK STOOL OR HEMATURIA. PICC IN LEFT ARM, DRAWS BLOOD AND FLUSHES WELL. REPORT GIVEN TO ONCOMING DAY SHIFT NURSE.
--- NOTE | 2021-05-25 17:44 | NUR ---
SHIFT SUMMARY PT IN CHAIR MOST OF DAY. SHOWER TAKEN AND TOLERATED WELL. AMBULATED IN HALLWAY USING FWW WITH P.T. AND THEN PRACTICED STEPS. FRIEND REPORTED SHE DIDN'T FEEL PT WOULD BE SAFE IN HER HOME DUE TO NEEDING TO CLIMB STEEP STAIRS. CARE MANAGEMENT AWARE AND WORKING WITH DISCHARGE PLANNING.
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
[2021-05-26] MEDS ORDERED: CLOP75 PO (11:19)
[2021-05-26] MEDS ORDERED: ATOR40TA PO (11:19)
[2021-05-26] MEDS ORDERED: ASPI81CH PO (11:19)
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
--- NOTE | 2021-05-26 16:17 | NUR ---
SUMMARY PT SITTING UP IN THE CHAIR AT THE BEDSIDE, PT HAS BEEN PLEASANT AND COOPERATIVE WITH CARE, FORGETFUL, FRIEND DEANDRA HAS BEEN IN TO VISIT, CARE MANAGEMENT IS WORKING ON A DISCHARGE PLAN, VSS, WILL CONT TO MONITOR
[2021-05-26] MEDS ORDERED: FAMO20 PO (18:38)
[2021-05-26] MEDS ORDERED: ZYRTEC10 M2 PO (18:39)
[2021-05-26] MEDS ORDERED: LOSA25 PO (18:40)
[2021-05-26] MEDS ORDERED: Klonopin1 MG PO (18:40)
--- NOTE | 2021-05-26 19:36 | NUR ---
a+ orintated to self and location, not a good decision maker easily distracted, call light in reach, worried about medication not matching her perscription but was unable to provide documentation or who her pcp was, will continue to work on it tomorrow, have requested a list from her pharmacy, 2L via ri, picc line able to draw and infuse, shift report shared with returning noc shift nurse
--- NOTE | 2021-05-26 23:08 | NUR ---
PHONE CALL FROM SON AMBIKA COULD SPEAK TO JAEL SARGENT. ROSETTA INQUIRES ABOUT WHY HIS MOM IS "SPENDING THE WEEKEND AT THE HOSPITAL." DISCUSSED WITH ROSETTA THAT PER NOTE WRITTEN FROM FORK LIFT TECHNICIAN VISIT TODAY, WORKING WITH APD TO DETERMINE IF PT HAS MEDICAID SERVICES AND WHERE TO ARRANGE PLACEMENT. PLAN IS TO DISCHARGE TO NURSING CARE, WORKING TO ARRANGE PLACEMENT. ROSETTA VERBALIZES APPRECIATION FOR THE UPDATE.
--- NOTE | 2021-05-27 05:38 | NUR ---
SHIFT SUMMARY PT SLEPT MOST OF THE NIGHT, REQUESTED ONE PRN PAIN MEDICATION. PLAN IS TO WORK ON PLACEMENT FOR AFTER DISCHARGE. VSS. PT DID NOT WEAR C-PAP AT NIGHT TO SLEEP. CALL LIGHT IN PLACE, CALLING APPROPRIATELY. INDEPENDENT TO THE BATHROOM. WILL CONTINUE TO MONITOR.
--- NOTE | 2021-05-27 18:13 | NUR ---
SHIFT SUMMARY. A&OX3, INDPENDENT IN ROOM WITH FWW, PLEASANT AND COOPERATIVE WITH CARE. PT DENIES PAIN, SOB, N/V, GOOD MEAL INTAKE. NO NEW CHANGES OR CONCERNS.
--- NOTE | 2021-05-28 05:19 | NUR ---
SHIFT SUMMARY NO ACUTE CHANGES. PT CONTINUES WITH NON-LINEAR THOUGHT PATTERN AND FLIGHT OF IDEAS RESPONSE TO QUESTIONS. SHE DID SLEEP WITH THE C-PAP ON FOR A FEW HOURS. AT THE START OF SHIFT PT WAS WEARING HER NC AT 3LPM, BUT REMOVED IT AROUND 1900. PT WAS SATING 95% ON ROOM AIR. PT AMBULATES INDEPENDENTLY TO THE BATHROOM. CONTINUING TO LEAVE THE BED ALARM ON DUE TO [place] SCALE SCORE OF 75, DUE TO SLIGHTLY IMPAIRED GAIT, IV, AND INTERMITTENT CONFUSION. WILL CONTINUE TO MONITOR.
--- NOTE | 2021-05-28 17:53 | NUR ---
SHIFT SUMMARY. PT HAS DENIED PAIN, SOB, N/V. A&OX2-3, INDEPENDENT IN ROOM WITH FWW ALL WEEKEND, PLEASANT AND COOPERATIVE WITH CARE. NO NEW CHANGES OR CONCERNS.
--- NOTE | 2021-05-29 06:23 | NUR ---
PT with homelessness & stemi with cardiac stent placed this visitneeding assist with safe placement. 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 PT has dc pending PT says insulation inspector assisting with safe dc plan. PT says she is not safe where she was using meth. Flight of ideas PT is calm & cooperative able to make needs known. Asking for [facility] referral ALONDRA this AM order placed & support offered for recovery.
[2021-05-29] MEDS ORDERED: VITAMIN D325 MC3 PO (10:44)
[2021-05-29] MEDS ORDERED: DULERA 100 MCG/13 GM (10:45)
[2021-05-29] MEDS ORDERED: Flonase 0.05% N16 GM (10:46)
[2021-05-29] MEDS ORDERED: ANORO ELLIPTA1 EACH (10:48)
[2021-05-29] MEDS ORDERED: ALBU90OI INH (10:50)
--- NOTE | 2021-05-29 11:16 | NUR ---
In response to a referral generated by DR. Brothers, I visit patient. Patient is sitting up in bed and alert. Patient has several questions of a theological nature which we take time to discuss. We also explore sources of meaning and dignity based on some personal struggles that the patient discloses. The issues of anxiety and depression are examined as well. Patient expresses her desire to DC today. I reinforce helpful attitudes and practices and provide therapeutic listening, pastoral nutrition counselor and prayer. Patient responds well and shows signs of increased peace and an elevated mood.
--- NOTE | 2021-05-29 19:24 | NUR ---
PT RESTING IN BED AFTER PM MEDICATION MANAGMENT AND DINNER. PT REMAINS ALERT AND ORIENTED X3-4 WITH CONFUSION. PT IS NOW IND. IN ROOM PER PT/OT AND WAS ABLE TO TAKE A SHOWER WITHOUT ISSUES. PT IS COOPERATIVE WITH MEDICATIONS AND CAREPLAN. NO ACUTE CHANGES NOTED. PICC LINE DC'S PER MD REQUEST. STAFF WILL CONTINUE TO MONITOR.
--- NOTE | 2021-05-30 13:43 | NUR ---
Patient is sitting up in bed and alert. Patient is tearful as soon as she begins talking. 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 I explain about the desire for a safe DC and that no one is trying to keep her against her because of her life choices. The intentions are for her best interest. Patient also states that she usually takes medications for anxiety and depression and that she has not had those medications since arriving at the hospital. I explain that there is probably a very good reason for that and that I'm sure it will be reconciled soon. I provide gentle encouragement, spiritual guidance, anxiety containment and prayer. Patient responds well and shows signs of increased peace and reduced stress.
--- NOTE | 2021-05-30 15:00 | NUR ---
PATIENT HAS BEEN PLEASANT AND COOPERATIVE WITH STAFF. VITALS HAVE BEEN STABLE AND WNL. INDEPENDENT IN ROOM. CALLS APPROPRIATELY FOR STAFF ASSIST. NO ACUTE CHANGES TO REPORT OF AT THIS TIME. CALL LIGHT WITHIN REACH.
--- NOTE | 2021-05-31 04:38 | NUR ---
SHIFT SUMMARY ADMITTED FOR STEMI. FULL CODE. PLAN IS TO DEVELOP A SAFE DC PLAN. APS IS ASSISTING WITH THIS CASE. PT IS REFUSING PLACEMENT AT THIS TIME. SHE IS A&O X4, INDEPENDENT IN ROOM, CARDIAC DIET. HX OF POLYSUBSTANCE ABUSE.
--- NOTE | 2021-05-31 17:53 | NUR ---
PATIENT MEDICALLY STABLE WITH NO ACUTE CHANGES TO REPORT OF AT THIS TIME. AWAITING SAFE DISCHARGE PLAN. SITTING UPRIGHT IN ROOM EATING DINNER AT THIS TIME. CALL LIGHT WITHIN REACH.
--- NOTE | 2021-06-01 05:14 | NUR ---
SHIFT SUMMARY ADMITTED FOR STEMI. FULL CODE. PLAN IS TO FIND A SAFE DC FOR THIS PT. APS IS INVESTIGATING. PT IS A&O X4, INDEPENDENT IN ROOM. ON CARDIAC DIET. HX OF POLYSUBSTANCE USE. NO NEW CONCERNS THIS SHIFT
--- NOTE | 2021-06-01 15:36 | NUR ---
Patient tells me that she is doing much better and that getting her medications for her anxiety and depression have helped along with having a good DC plan. I provide therapeutic listening, spiritual guidance and prayer. Patient voices appreciation for my time and care and then says a short prayer of blessing for me.
--- NOTE | 2021-06-01 18:16 | NUR ---
NO ACUTE CHANGES INDEPENDENT IN ROOM. PT DENIES PAIN AND IS COOPERATIVE OF ALL CARE. CALL LIGHT IS WITHIN REACH WILL CONTINUE TO MONITOR.
--- NOTE | 2021-06-02 04:15 | NUR ---
SHIFT SUMMARY ADMITTED FOR STEMI ON 05/18. FULL CODE. SHE IS A&O X4, INDEPENDENT IN ROOM. SHE PLANS TO DC TODAY W/EX . APS IS INVESTIGATING PREVIOUS LIVING SITUATION. SHE IS REFUSING PLACEMENT. HX OF METH AND OPIOID USE. NO NEW CONCERNS THIS SHIFT
[2021-06-02] MEDS ORDERED: CARV6.25 PO (08:36)
--- NOTE | 2021-06-02 11:52 | NUR ---
PT DISCHARGED AT 1025 WITH ALL PAPERWORK REVIEWED AND EDUCATIONAL MATERIAL SENT WITH PT. NO DISTRESS NOTED AND INDEPENDENT IN ROOM. ALL PERSONAL BELONGINGS COLLECTED AND TAKEN WITH PT. PT ESCORTED TO N ENTRANCE VIA WHEEL CHAIR NO DISTRESS NOTED. FRIEND TO TRANSPORT.
== END 2021-06-02 10:52 | disposition home or self-care (01) | DRG 246 ==
LOC: ER 14:57 → ICUE 15:06 → MEDS 15:06 → ICUW 15:06 → ICUE 16:34 → MEDS 05-23 13:18 → ENPENDDIS 06-02 08:37 → MEDS 06-02 10:52
PROVIDERS: Emergency Medicine; Family Medicine; Internal Medicine; Internal Medicine Critical Care Medicine; Pharmacist; ADMIT Internal Medicine Cardiovascular Disease
PROC: 027034Z Dilation of Coronary Artery, One Artery with Drug-eluting Intraluminal Device, Percutaneous Approach (ICD-10-PCS; principal; 2021-05-18)
PROC: 3E033XZ Introduction of Vasopressor into Peripheral Vein, Percutaneous Approach (ICD-10-PCS; 2021-05-18)
PROC: B24BZZZ Ultrasonography of Heart with Aorta (ICD-10-PCS; 2021-05-18)
PROC: 5A1955Z Respiratory Ventilation, Greater than 96 Consecutive Hours (ICD-10-PCS; 2021-05-18)
PROC: B2111ZZ Fluoroscopy of Multiple Coronary Arteries using Low Osmolar Contrast (ICD-10-PCS; 2021-05-18)
DX: I21.19 ST elevation (STEMI) myocardial infarction involving other coronary artery of inferior wall (principal); J80 Acute respiratory distress syndrome; G92 Toxic encephalopathy; R57.9 Shock, unspecified; E66.01 Morbid (severe) obesity due to excess calories; J44.9 Chronic obstructive pulmonary disease, unspecified; N18.9 Chronic kidney disease, unspecified; G47.33 Obstructive sleep apnea (adult) (pediatric); F15.10 Other stimulant abuse, uncomplicated; F41.8 Other specified anxiety disorders; R73.9 Hyperglycemia, unspecified; M19.90 Unspecified osteoarthritis, unspecified site; F17.210 Nicotine dependence, cigarettes, uncomplicated; Z88.8 Allergy status to other drugs, medicaments and biological substances; Z79.899 Other long term (current) drug therapy
CPT/HCPCS: 31500; 31720; 36569; 36600; 71045; 76937; 80047; 80048; 80053; 80202; 81001; 82270; 82565; 82803; 82947; 83721; 83735; 83880; 84100; 84478; 84484; 85014; 85018; 85025; 85347; 85610; 85730; 87086; 93005; 93010; 93306; 93454; 94002; 94003; 94640; 94660; 94760; 94762; 96374; 97110; 97116; 97162; 97165; 97530; 97535; 99152; 99153; 99285-25; A9270; C1725; C1751; C1769; C1874; C1887; C1894; C9113; C9606; G0480; J0461; J0696; J1644; J1650; J1815; J2060; J2370; J2704; J2920; J3010; J3246; J3370; J7030; J7040; J7050; J7060; J7120; Q9967

== ENCOUNTER 2023-04-02 13:46 | Inpatient (IN) | payer OTHER ==
[~2023-04-02] VITALS: Ht 160 cm; Wt 94.8 kg
[~2023-04-02 13:46] MED LIST changes: +ALBU90OI INH; +ANORO ELLIPTA1 EACH; +ASPI81CH PO; +ATOR40TA PO; +CARV6.25 PO; +CLOP75 PO; +DULERA 100 MCG/13 GM; +FAMO20 PO; +Flonase 0.05% N16 GM; +GUAI600T33; +Klonopin1 MG PO; +LEVO750 PO; +LOSA25 PO; +PRED20 PO; +TIOT18; +VITAMIN D325 MC3 PO; +ZYRTEC10 M2 PO
[2023-04-02 14:20] LABS: Base Excess Venous 2.9 mmol/L; Bicarbonate Venous 26.1 mmol/L (24.0-30.0); PCO2 Venous 47.7 mmHg (38-42); pH Blood Venous 7.38 (7.34-7.37)
[2023-04-02 14:28] LABS: BASOPHILS ABSOLUTE AUTO 0.05 K/mm3 (0.00-0.23); BASOPHILS PERCENT AUTO 0 % (0-2); EOSINOPHILS ABSOLUTE AUTO 0.19 K/mm3 (0.00-0.68); EOSINOPHILS PERCENT AUTO 1 % (0-6); Hematocrit 45.5 % (33.0-51.0); IMMATURE GRAN ABSOLUTE AUTO 0.06 K/mm3 (0.00-0.10); IMMATURE GRAN PERCENT AUTO 0 % (0-1); LYMPHOCYTES ABSOLUTE AUTO 1.98 K/mm3 (0.84-5.20); LYMPHOCYTES PERCENT AUTO 14 % (21-46); MONOCYTES ABSOLUTE AUTO 1.27 K/mm3 (0.16-1.47); MONOCYTES PERCENT AUTO 9 % (4-13); Mean Corpuscular HGB 29.5 pg (26.0-34.0); Mean Corpuscular Volume 89 fL (80-100); Mean Platelet Volume 9.6 fL (9.1-12.4); NEUTROPHILS PERCENT AUTO 76 % (41-73); Platelet Count 312 K/mm3 (150-400); RDW Coefficient Variation 12.7 % (11.7-14.2); Red Blood Cell Count 5.09 M/mm3 (3.80-5.20); White Blood Cell Count 14.55 K/mm3 (4.00-11.30)
[2023-04-02 14:43] LABS: Albumin, Blood 3.2 g/dL (3.4-5.0); Albumin/Globulin Ratio 0.9 (0.8-1.8); Bilirubin, Total 0.7 mg/dL (0.1-1.0); Bun/Creatinine Ratio 17.3 (12.0-20.0); Calcium, Blood 8.9 mg/dL (8.5-10.1); Creatinine, Blood 0.92 mg/dL (0.40-1.00); Globulin, Blood 3.6 g/dL (2.2-4.0); Potassium, Blood 4.4 mmol/L (3.5-5.5); Total Protein, Blood 6.8 g/dL (6.4-8.2)
[2023-04-02 18:39] LABS: Source, Urine Clean Catch
[2023-04-02 19:20] LABS: Appearance, Urine Hazy (Clear); Bilirubin, Urine Neg (Neg); Blood, Urine Neg (Neg); Color, Urine Yellow (P-Yellow); Glucose Qualitative, Urine Neg (Neg); Ketones, Urine Neg (Neg); Leukocyte Esterase, Urine 1+ (Neg); Nitrite, Urine Neg (Neg); Protein, Urine 1+ (Neg); Urobilinogen, Urine NORM (Normal)
[2023-04-02 19:41] LABS: Bacteria Many /hpf; Squamous Epithelial Cells Mod /hpf (Few)
[2023-04-02 19:42] LABS: Granular Casts 0-2 /lpf (0)
[2023-04-02] MEDS ORDERED: BUSP10 PO (20:14)
[2023-04-02] MEDS ORDERED: ATOR80 PO (20:14)
[2023-04-02] MEDS ORDERED: CARV6.25 PO (20:15)
[2023-04-02] MEDS ORDERED: ALBU90OI INH (20:15)
[2023-04-02] MEDS ORDERED: Flonase 0.05% N16 GM (20:16)
[2023-04-02] MEDS ORDERED: DULERA 200 MCG-13 GM INH (20:16)
[2023-04-02] MEDS ORDERED: THERA-D2000 UNIT PO (20:17)
[2023-04-02] MEDS ORDERED: MELATONIN5 M1 PO (20:17)
[2023-04-02] MEDS ORDERED: SPIRIVA RESPIMAT4 G3 INH (20:17)
--- NOTE | 2023-04-02 20:20 | NUR ---
SPOKE WITH DR. GARRISON @1930 REGARDING PT STATUS ONLY REQUIRING 2L NC AND PCU STATUS. CONFIRMED WITH DR. GARRISON AND BEDSIDE ED RN THAT PT WOULD BE APPROPRIATE FOR MEDICAL FLOOR AT THIS TIME. ORDER CHANGED TO MEDICAL ADMIT STATUS
[2023-04-02 21:08] VITALS: BP 119/79
[2023-04-03 04:43] VITALS: BP 117/83
--- NOTE | 2023-04-03 04:52 | NUR ---
Code Status - Pt wants FC I discussed code status with pt and asked her wishes. She stated that if her heart stopped she would want chest compressions and CPR and if she stopped breathing she would want intubation. Called hospitalist who ordered code status changed back to FULL CODE.
[2023-04-03 05:29] LABS: BASOPHILS ABSOLUTE AUTO 0.02 K/mm3 (0.00-0.23); BASOPHILS PERCENT AUTO 0 % (0-2); EOSINOPHILS PERCENT AUTO 0 % (0-6); Hematocrit 45.3 % (33.0-51.0); IMMATURE GRAN ABSOLUTE AUTO 0.07 K/mm3 (0.00-0.10); IMMATURE GRAN PERCENT AUTO 0 % (0-1); LYMPHOCYTES ABSOLUTE AUTO 0.98 K/mm3 (0.84-5.20); LYMPHOCYTES PERCENT AUTO 6 % (21-46); MONOCYTES PERCENT AUTO 2 % (4-13); Mean Corpuscular HGB 29.2 pg (26.0-34.0); Mean Corpuscular HGB Conc 33.1 g/dL (31.5-36.5); Mean Corpuscular Volume 88 fL (80-100); Mean Platelet Volume 9.6 fL (9.1-12.4); NEUTROPHILS ABSOLUTE AUTO 15.32 K/mm3 (1.96-9.15); NEUTROPHILS PERCENT AUTO 92 % (41-73); Platelet Count 301 K/mm3 (150-400); RDW Coefficient Variation 12.3 % (11.7-14.2); RDW Standard Deviation 40.4 fL (35.1-46.3); Red Blood Cell Count 5.13 M/mm3 (3.80-5.20); White Blood Cell Count 16.69 K/mm3 (4.00-11.30)
[2023-04-03 05:53] LABS: Albumin, Blood 3.1 g/dL (3.4-5.0); Albumin/Globulin Ratio 0.9 (0.8-1.8); Bilirubin, Total 0.5 mg/dL (0.1-1.0); Bun/Creatinine Ratio 23.4 (12.0-20.0); Calcium, Blood 9.1 mg/dL (8.5-10.1); Creatinine, Blood 0.99 mg/dL (0.40-1.00); Globulin, Blood 3.6 g/dL (2.2-4.0); Magnesium, Blood 2.3 mg/dL (1.6-2.4); Potassium, Blood 4.2 mmol/L (3.5-5.5); Total Protein, Blood 6.7 g/dL (6.4-8.2)
--- NOTE | 2023-04-03 07:19 | NUR ---
Shift Summary Pt arrived from ED w/ dx of Acute Respiratory Distress with suspected pneumonia in R lower base. She is on 2L O2 NC and is RA at BL. She used the bathroom without O2 and desaturated quickly into low 80's. AOx4, independent in room. Rcving IV steriods and ABX.
[2023-04-03 07:32] VITALS: BP 118/78
[2023-04-03 09:59] VITALS: BP 120/76
--- NOTE | 2023-04-03 16:44 | NUR ---
SHIFT SUMMARY: QUAN IS A 62 YR OLD FEMALE HERE FOR ACUTE RESP. FAILURE. SHE WAS ADMITTED ON 04/02/23 AFTER PRESENTING TO THE ER FOR SOB/DIFFICULTY BREATHING NOTED BY HER CAREGIVER. SHE WAS DX WAS R LUNG BASE PNEUMONIA: SPUTUM CULTURE PENDING. ON BROADSPECTRUM ABX COVERAGE. SHE IS A&O X4, INDEPENDENT AND CONTINENT. INCREASED SOB WITH EXERTION, ON 2 L N/C TO MAINTAIN O2% OF 90 OR >; RA BASELINE. SHE REMAINS RESTING IN BED AND NO S/S OF DISTRESS. CALL LIGHT WITHIN REACH.
--- NOTE | 2023-04-03 17:27 | NUR ---
CALLED PHARMACY- SOLUMEDROL DOSE WAS GIVEN LATE. PER PHARMACY OK TO GIVE NEXT DOSE AT 1900 INSTEAD OF 1800 THEN NEXT DOSE COULD BE ON TIME.
[2023-04-03 20:10] VITALS: BP 109/77
[2023-04-04 03:41] VITALS: BP 116/78
--- NOTE | 2023-04-04 04:01 | NUR ---
SHIFT SUMMARY PATIENT HAD NO ACUTE CHANGES. AXOX 4 AND SBA W/FWW TO BR. ON 2L O2 NC AND ROOM AIR BASELINE. DENIES CHEST PAIN AND N/V. SOB W/EXERTION. VSS/AFEBRILE. IV SOLU MEDROL GIVEN PER EMAR. RT IN FOR BREATHING TX. CALL LIGHT IN REACH. BED IN LOWEST POSITION. WILL CONTINUE TO MONITOR UNTIL DAY SHIFT NURSE ASSUMES CARE.
[2023-04-04 06:36] LABS: BASOPHILS ABSOLUTE AUTO 0.04 K/mm3 (0.00-0.23); BASOPHILS PERCENT AUTO 0 % (0-2); EOSINOPHILS PERCENT AUTO 0 % (0-6); Hemoglobin 15.1 g/dL (11.5-16.0); IMMATURE GRAN ABSOLUTE AUTO 0.24 K/mm3 (0.00-0.10); IMMATURE GRAN PERCENT AUTO 1 % (0-1); LYMPHOCYTES PERCENT AUTO 4 % (21-46); MONOCYTES ABSOLUTE AUTO 0.52 K/mm3 (0.16-1.47); MONOCYTES PERCENT AUTO 2 % (4-13); Mean Corpuscular HGB 29.5 pg (26.0-34.0); Mean Corpuscular HGB Conc 33.6 g/dL (31.5-36.5); Mean Corpuscular Volume 88 fL (80-100); Mean Platelet Volume 9.8 fL (9.1-12.4); NEUTROPHILS ABSOLUTE AUTO 24.14 K/mm3 (1.96-9.15); NEUTROPHILS PERCENT AUTO 93 % (41-73); Platelet Count 292 K/mm3 (150-400); RDW Coefficient Variation 12.4 % (11.7-14.2); RDW Standard Deviation 39.9 fL (35.1-46.3); Red Blood Cell Count 5.11 M/mm3 (3.80-5.20); White Blood Cell Count 25.94 K/mm3 (4.00-11.30)
[2023-04-04 08:11] LABS: Creatinine, Blood 0.88 mg/dL (0.40-1.00); Potassium, Blood 4.6 mmol/L (3.5-5.5)
[2023-04-04 09:25] VITALS: BP 120/82
[2023-04-04 10:28] VITALS: BP 129/79
[2023-04-04 14:17] VITALS: BP 107/71
[2023-04-04 19:50] VITALS: BP 127/86
--- NOTE | 2023-04-04 20:23 | NUR ---
SHIFT SUMMARY- PT REDUCED TO BID STEROIDS IV TODAY, O2 TITRATED TO ROOM AIR AND THE PT IS TOLLERATING WELL. PLAN IS FOR POSSIBLE DC HOME TOMORROW WITH HER CAREGIVER. BEDSIDE REPORT COMPLETED WITH NIGHT RN [place]. PT IN BED, CALL LIGHT IN REACH NO S&S OF DISTRESS.
--- NOTE | 2023-04-05 04:08 | NUR ---
SHIFT SUMMARY PATIENT HAD NO ACUTE CHANGES. AXOX 4 AND SBA TO BR. ON ROOM AIR STATING 92%. PIV REMAINS INTACT. IV SOLU-MEDROL GIVEN PER EMAR. VSS/AFEBRILE. DENIES CHEST PAIN, SOB, AND N/V. RT IN FOR BREATHING TX. COOPERATIVE WITH CARE. CALL LIGHT IN REACH. BED IN LOWEST POSITION. WILL CONTINUE TO MONITOR UNTIL DAY SHIFT NURSE ASSUMES CARE.
[2023-04-05 04:33] VITALS: BP 147/86
[2023-04-05 05:22] LABS: Hematocrit 42.5 % (33.0-51.0); Hemoglobin 13.9 g/dL (11.5-16.0); Mean Corpuscular HGB 28.8 pg (26.0-34.0); Mean Corpuscular HGB Conc 32.7 g/dL (31.5-36.5); Mean Corpuscular Volume 88 fL (80-100); Mean Platelet Volume 9.9 fL (9.1-12.4); Platelet Count 330 K/mm3 (150-400); RDW Coefficient Variation 12.4 % (11.7-14.2); RDW Standard Deviation 40.1 fL (35.1-46.3); Red Blood Cell Count 4.82 M/mm3 (3.80-5.20); White Blood Cell Count 21.15 K/mm3 (4.00-11.30)
[2023-04-05 05:48] LABS: Bun/Creatinine Ratio 31.1 (12.0-20.0); Calcium, Blood 8.7 mg/dL (8.5-10.1); Creatinine, Blood 0.87 mg/dL (0.40-1.00); Potassium, Blood 4.5 mmol/L (3.5-5.5)
[2023-04-05 07:32] VITALS: BP 148/95
[2023-04-05] MEDS ORDERED: NITR100CA PO (13:29)
[2023-04-05] MEDS ORDERED: GUAI600T33 PO (13:30)
[2023-04-05] MEDS ORDERED: DOCU100 PO (13:30)
[2023-04-05] MEDS ORDERED: DELTASONE20 MG PO (13:35)
[2023-04-05] MEDS ORDERED: VISBIOME 112.51 EACH PO (13:36)
--- NOTE | 2023-04-05 16:04 | NUR ---
NOTE/DISCHARGE SUMMARY: PATIENT A&OX4. CALM, PLEASANT AND COOPERATIVE c CARE. USES CALL LIGHT APPROPRIATELY AND ABLE TO MAKE NEEDS KNOW. DENIES CP/PRESSURE, N/V, SOB AND GENERALIZED PAIN. PATIENT ON RA c SPO2 RANGES 90-95%. LUNGS HAS EXP WHEEZES T/O TO AUSCULTATION. PATIENT AMBULATES TO BATHROOM AND BACK IN BED INDEPENDENTLY. PATIENT HAD LARGE BROWN FORMED BM TODAY. RECEIVED SCHEDULED MEDS PER EMAR. VITAL SIGNS REVIEWED. PIV TO LAC DC'D BY MANAGER FASHION STAFF. PATIENT DISCHARGE HOME. DISCHARGE INSTRUCTION PACKET GIVEN TO PATIENT. EDUCATE PATIENT REGARDING ADMITTING DX, S/S, TX, AND NEW PRESCRIBED MEDICATIONS. PATIENT STATED UNDERSTANDING AND NO FURTHER QUESTIONS. RX WAS FAXED TO PATIENT PREFERRED PHARMACY ([facility]). ALL PATIENT PERSONAL BELONGINGS WERE SENT HOME c THE PATIENT. PATIENT LEFT THE ROOM AT AROUND 1600'S. PATIENT TRANSPORTED VIA WHEELCHAIR BY STAFF TO PATIENT FRIEND PRIVATE VEHICLE.
== END 2023-04-05 16:08 | disposition home or self-care (01) | DRG 193 ==
LOC: ER 13:46 → MEDS 13:47 → ENPENDDIS 04-05 12:23 → MEDS 04-05 16:08
PROVIDERS: Family Medicine; Family Medicine Adult Medicine; Student in an Organized Health Care Education/Training Program; ADMIT Student in an Organized Health Care Education/Training Program
DX: J18.9 Pneumonia, unspecified organism (principal); J96.21 Acute and chronic respiratory failure with hypoxia; J96.22 Acute and chronic respiratory failure with hypercapnia; J44.0 Chronic obstructive pulmonary disease with (acute) lower respiratory infection; J44.1 Chronic obstructive pulmonary disease with (acute) exacerbation; J98.11 Atelectasis; N39.0 Urinary tract infection, site not specified; B96.20 Unspecified Escherichia coli [E. coli] as the cause of diseases classified elsewhere; I25.10 Atherosclerotic heart disease of native coronary artery without angina pectoris; F41.8 Other specified anxiety disorders; Z66 Do not resuscitate; N18.9 Chronic kidney disease, unspecified; M19.90 Unspecified osteoarthritis, unspecified site; J20.9 Acute bronchitis, unspecified; I10 Essential (primary) hypertension; F15.11 Other stimulant abuse, in remission; B37.9 Candidiasis, unspecified; G47.30 Sleep apnea, unspecified; Z87.891 Personal history of nicotine dependence; Z85.841 Personal history of malignant neoplasm of brain; I25.2 Old myocardial infarction; Z79.2 Long term (current) use of antibiotics; Z79.02 Long term (current) use of antithrombotics/antiplatelets; Z79.51 Long term (current) use of inhaled steroids; Z79.899 Other long term (current) drug therapy; Z99.81 Dependence on supplemental oxygen; Z86.19 Personal history of other infectious and parasitic diseases; Z87.442 Personal history of urinary calculi
CPT/HCPCS: 36415; 71046; 74177; 80048; 80053; 81001; 82803; 83690; 83735; 83880; 84484; 85025; 85027; 85379; 87070; 87077; 87086; 87186; 87205; 90732; 93005; 93010; 94640; 94644; 94664; 94760; 94762; 96365-59; 96366; 96367; 96375; 96376; 99285-25; 99406; A9270; G0378; J0456; J0696; J1650; J2405; J2930; J7050; Q9967

== ENCOUNTER 2023-11-14 11:49 | Observation (INO) | payer OTHER ==
[~2023-11-14] VITALS: Ht 160 cm; Wt 91.5 kg
[~2023-11-14 11:49] MED LIST changes: +ATOR80 PO; +BUSP10 PO; +DELTASONE20 MG PO; +DOCU100 PO; +DULERA 200 MCG-13 GM INH; +GUAI600T33 PO; +MELATONIN5 M1 PO; +NITR100CA PO; +SPIRIVA RESPIMAT4 G3 INH; +THERA-D2000 UNIT PO; +VISBIOME 112.51 EACH PO
[2023-11-14 12:08] VITALS: BP 128/89
[2023-11-14 12:58] LABS: BASOPHILS ABSOLUTE AUTO 0.02 K/mm3 (0.00-0.23); BASOPHILS PERCENT AUTO 0 % (0-2); EOSINOPHILS ABSOLUTE AUTO 0.04 K/mm3 (0.00-0.68); EOSINOPHILS PERCENT AUTO 0 % (0-6); Hematocrit 47.7 % (33.0-51.0); Hemoglobin 16.2 g/dL (11.5-16.0); IMMATURE GRAN ABSOLUTE AUTO 0.04 K/mm3 (0.00-0.10); IMMATURE GRAN PERCENT AUTO 0 % (0-1); LYMPHOCYTES PERCENT AUTO 17 % (21-46); MONOCYTES ABSOLUTE AUTO 1.25 K/mm3 (0.16-1.47); MONOCYTES PERCENT AUTO 12 % (4-13); Mean Corpuscular HGB 29.5 pg (26.0-34.0); Mean Corpuscular Volume 87 fL (80-100); Mean Platelet Volume 9.7 fL (9.1-12.4); NEUTROPHILS ABSOLUTE AUTO 7.13 K/mm3 (1.96-9.15); NEUTROPHILS PERCENT AUTO 70 % (41-73); Platelet Count 214 K/mm3 (150-400); RDW Standard Deviation 41.6 fL (35.1-46.3); Red Blood Cell Count 5.49 M/mm3 (3.80-5.20); White Blood Cell Count 10.18 K/mm3 (4.00-11.30)
[2023-11-14 13:31] LABS: Bun/Creatinine Ratio 13.6 (12.0-20.0); Calcium, Blood 8.8 mg/dL (8.5-10.1); Creatinine, Blood 0.96 mg/dL (0.40-1.00)
[2023-11-14 14:55] LABS: Influenza A, PCR NEGATIVE (NEGATIVE); Influenza B, PCR NEGATIVE (NEGATIVE); Resp Syncytial Virus, PCR NEGATIVE (NEGATIVE); SARS-Cov-2 (COVID-19) PCR, MMC POSITIVE (NEGATIVE)
[2023-11-14] MEDS ORDERED: LOSA50 PO (15:06)
[2023-11-14] MEDS ORDERED: ALBU2.5V5 INH (15:07)
[2023-11-14 16:12] VITALS: BP 121/83
--- NOTE | 2023-11-14 17:36 | NUR ---
SHIFT SUMMARY AND ADMISSION PATIENT DIRECT ADMIT FROM PCP OFFICE. PATIENT HAD INCREASED SOB AND WHEEZING FOR 3-4 DAYS. PATIENT STATED THAT SHE WAS COLD ALL DAY YESTERDAY. LUNGS TIGHT WITH WHEEZES. OCCASIONAL COUGH. PATIENT NOTED TO HAVE A FEVER ON ARRIVAL OF 100.1. NO ONE ELSE IN THE HOME HAVING SYMPTOMS. PATIENT TESTED FOR COVID. PATIENT FOUND TO BE +. PATIENT PLACED IN ISOLATION AND EDUCATED. PATIENT CONTINUES TO BE ON RA. PATIENT AMBULATING INDEPENDENTLY IN THE ROOM TO . PATIENT NOT RISK FOR SELF HARM. DOCUMENTATION CORRECTED. NO RISK ASSESSMENT NEEDED.
[2023-11-14 19:31] VITALS: BP 126/89
--- NOTE | 2023-11-15 04:37 | NUR ---
SHIFT SUMMARY. PATIENT IS A 63 YEAR OLD FEMALE IN WITH COPD EXACERBATION WHO TESTED POSITIVE FOR COVID HERE AT THE HOSPITAL. PATIENT WAS A DIRECT ADMIT FROM HER PCP. PATIENT INDEPENDENT TO BATHROOM WILL CALL IF SHORT OF BREATH FOR ASSISTANCE. PATIENT HAS SLEPT T/O THE NIGHT WITH RESPIRATIONS EQUAL AND UNLABORED AND AN OCCASSIONAL COUGH. PATIENT IS AOX4, CALLS APPROPRIATELY AND IS ABLE TO MAKE HER NEEDS KNOWN. PATIENT HOT-FAN PROVIDED. PATIENT IS PLEASANT AND COOPERATIVE WITH CARE. BED IS LOCKED IN THE LOWEST POSITION WITH CALL LIGHT IN REACH.
[2023-11-15 04:40] VITALS: BP 153/100
[2023-11-15 07:53] VITALS: BP 142/88
[2023-11-15] MEDS ORDERED: PRED20 PO (11:53)
[2023-11-15] MEDS ORDERED: AZIT500 PO (11:53)
[2023-11-15] MEDS ORDERED: VISBIOME 112.51 EACH PO (11:53)
--- NOTE | 2023-11-15 14:32 | NUR ---
SHIFT SUMMARY AND DISCHARGE PATIENT ALERT AND INTERACTIVE. PATIENT AMBULATING IN ROOM INDEPENDENTLY. PATIENT STATES BREATHING BETTER. PATIENT CONTINUES ON RA. PATIENT DISCHARGED HOME. DISCHARGE INSTRUCTIONS REVIEWED WITH PATIENT AND CAREGIVER. RX SENT TO [facility] AND PATIENT'S REQUEST. IV DC'D. BELONGINGS SENT WITH PATIENT. PATIENT TAKEN OUT VIA WHEELCHAIR WITH A MASK ON BY FUR PULLER. COVID HOME INSTRUCTIONS REVIEWED.
== END 2023-11-15 15:46 | disposition home or self-care (01) ==
LOC: MEDS 11:49 → ENPENDDIS 11-15 12:31 → MEDS 11-15 15:46
PROVIDERS: ADMIT Internal Medicine
DX: J44.1 Chronic obstructive pulmonary disease with (acute) exacerbation (principal); I25.10 Atherosclerotic heart disease of native coronary artery without angina pectoris; I10 Essential (primary) hypertension; F32.9 Major depressive disorder, single episode, unspecified; Z66 Do not resuscitate; Z87.891 Personal history of nicotine dependence; Z79.899 Other long term (current) drug therapy
CPT/HCPCS: 0241U; 36415; 71045; 80048; 85025; 94640; 94664; 94760; 96372; 96374; 96376; A9270; G0378; J1650; J2930